=== PATIENT | male | born 1935 | race Caucasian/White ===

== ENCOUNTER → 2024-03-01 | Outpatient (CLI) | payer MEDICARE, BC, SELFPAY ==
[2024-03-01 17:07] LABS: Basophils # (Auto) 0.1 Thou/mm3 (0.0-0.2); Basophils % (Auto) 1 % (0-2.5); Eosinophils # (Auto) 0.3 Thou/mm3 (0.0-0.5); Eosinophils % (Auto) 5 % (0-10); Hematocrit 40.6 % (41.0-53.0); Hemoglobin 12.7 g/dL (13.5-16.0); Immature Granulocytes % (Auto) 0 % (0-0); Immature Granulocytes Auto 0.02 Thou/mm3 (0.00-0.00); Lymphocytes # (Auto) 0.8 Thou/mm3 (1.0-4.8); Lymphocytes % (Auto) 13 % (10-50); Mean Corpuscular HGB Conc 31.3 g/dl (31.0-37.0); Mean Corpuscular Hemoglobin 29.4 pg (25.0-35.0); Mean Corpuscular Volume 94 fL (80-100); Monocytes # (Auto) 0.6 Thou/mm3 (0.0-0.8); Monocytes % (Auto) 10 % (0-12); Neutrophils # (Auto) 4.2 Thou/mm3 (1.8-7.7); Neutrophils % (Auto) 71 % (37-80); Nucleated Red Blood Cell % 0 /100 WBC (0); Platelet Count 182 Thou/mm3 (140-440); RDW Standard Deviation 47.7 fL (35.1-43.9); Red Blood Count 4.32 Miln/mm3 (4.50-5.90); White Blood Count 5.9 Thou/mm3 (3.8-10.6)
[2024-03-01 17:08] LABS: Alanine Aminotransferase 10 U/L (10-49); Albumin, Serum 4.1 gm/dL (3.4-4.8); Albumin/Globulin Ratio 2.1 (1.2-2.2); Alkaline Phosphatase 71 U/L (46-116); Anion Gap 7 (7-16); Aspartate Amino Transferase < 10 U/L (0-34); BUN/Creatinine Ratio 16 Ratio (12-20); Bilirubin,Total 0.6 mg/dL (0.3-1.2); Blood Urea Nitrogen 19 mg/dL (9-23); Calcium 9.4 mg/dL (8.3-10.6); Calcium (Corrected) 9.4 mg/dL (8.5-10.1); Carbon Dioxide 26.7 mMol/L (20.0-31.0); Chloride 106 mMol/L (98-107); Creatinine (Component) 1.2 mg/dL (0.6-1.3); Glucose 144 mg/dL (74-106); Osmolality,Calculated 284 (275-295); Potassium 4.5 mMol/L (3.4-5.1); Sodium 140 mMol/L (136-145); Thyroid Stimulating Hormone 3.22 uIU/mL (0.55-4.78); Total Protein 6.1 gm/dL (5.7-8.2); eGFR 58 See Note
[2024-03-01 17:34] LABS: Glucose Estimated Average 140 mg/dL (80-131); Hemoglobin A1C 6.5 % Hgb (4.8-6.0)
== END | disposition home or self-care (01) ==
LOC: SLDO 14:18
PROVIDERS: PCP Internal Medicine; Referring Provider Internal Medicine; Visit Provider Internal Medicine
DX: R94.6 Abnormal results of thyroid function studies (principal); E11.65 Type 2 diabetes mellitus with hyperglycemia; N40.1 Benign prostatic hyperplasia with lower urinary tract symptoms; I67.9 Cerebrovascular disease, unspecified
CPT/HCPCS: 36415; 80053; 83036; 84439; 84443; 85025

== ENCOUNTER → 2024-03-07 | Outpatient (CLI) | payer MEDICARE, BC, SELFPAY ==
[2024-03-07 13:35] LABS: Collection Type, Urine Clean Catch; Squamous Epithelial Cell,Urine 0 /hpf (0-5)
[2024-03-07 14:55] LABS: Bacteria,Urine Rare; Bilirubin,Urine Negative (Negative); Blood,Urine Negative (Negative); Clarity,Urine Clear (Clear/Hazy); Color,Urine Lt-Yellow (Lt Yel-Yel); Glucose, Urine Negative (Negative); Ketones,Urine Negative (Negative); Leukocyte Esterase,Urine Negative (Negative); Nitrite,Urine Negative (Negative); Protein,Urine Negative (Neg - Trace); RBC,Urine < 1 /hpf (0-3); Specific Gravity,Urine 1.017 (1.001-1.035); Urobilinogen,Urine Negative mg/dL (0.0-1.0); WBC,Urine 1 /hpf (0-5)
== END | disposition home or self-care (01) ==
PROVIDERS: PCP Internal Medicine; Referring Provider Internal Medicine; Visit Provider Internal Medicine
DX: E11.65 Type 2 diabetes mellitus with hyperglycemia (principal)
CPT/HCPCS: 81001

== ENCOUNTER 2024-12-31 18:45 | Emergency (ER) | payer MEDICARE, BC, SELFPAY ==
[2024-12-31 18:47] VITALS: PULSE 74; RESP 18; O2SAT 94; BMI 25.1
--- NOTE | 2024-12-31 18:53 | XR_ITS ---
EXAMINATION: AP chest single view TECHNIQUE: AP portable upright chest single view Date and time: December 31, 2024, 1999 hours, comparison December 31, 2024 1527 hours INDICATIONS: Coughing shortness of breath today. FINDINGS: Subtle abnormal interstitial disease throughout the lungs Mild prominence left ventricle Prominent osteopenia IMPRESSION: Subtle abnormal interstitial disease throughout the lungs consistent with pneumonia
[2024-12-31 19:01] VITALS: BP 147/95; PULSE 82; RESP 20; TEMP 36.8; O2SAT 94
[2024-12-31 19:40] VITALS: BP 141/81; PULSE 77; RESP 20; TEMP 36.8; O2SAT 98
[2024-12-31 20:09] LABS: Basophils # (Auto) 0.0 Thou/mm3 (0.0-0.2); Basophils % (Auto) 0 % (0-2.5); Eosinophils # (Auto) 0.0 Thou/mm3 (0.0-0.5); Eosinophils % (Auto) 0 % (0-10); Hematocrit 40.7 % (41.0-53.0); Hemoglobin 13.4 g/dL (13.5-16.0); Immature Granulocytes Auto 0.02 Thou/mm3 (0.00-0.00); Lymphocytes # (Auto) 0.7 Thou/mm3 (1.0-4.8); Lymphocytes % (Auto) 11 % (10-50); Mean Corpuscular HGB Conc 32.9 g/dl (31.0-37.0); Mean Corpuscular Hemoglobin 30.0 pg (25.0-35.0); Mean Corpuscular Volume 91 fL (80-100); Monocytes # (Auto) 0.3 Thou/mm3 (0.0-0.8); Monocytes % (Auto) 4 % (0-12); Neutrophils # (Auto) 5.5 Thou/mm3 (1.8-7.7); Neutrophils % (Auto) 84 % (37-80); Nucleated Red Blood Cell # 0.00 Thou/mm3 (0.00-0.00); Nucleated Red Blood Cell % 0 /100 WBC (0); Platelet Count 171 Thou/mm3 (140-440); RDW Standard Deviation 45.0 fL (35.1-43.9); Red Blood Count 4.46 Miln/mm3 (4.50-5.90); White Blood Count 6.6 Thou/mm3 (3.8-10.6)
--- NOTE | 2024-12-31 20:34 | EDNOTE_ITS ---
ED General RME/HPI General Chief complaint: Shortness of Breath/Dyspnea Stated complaint: SOB Time Seen by Provider: 12/31/24 18:53 Arrival date/time: 12/31/24 18:45 CC: Coughing spasm HPI patient was recently diagnosed with COVID and pneumonia sent home from the hospital, patient now returns with coughing spasms that are lasting 1 to 2 minutes. The patient states he is not getting relief with the medicines he has at home. EMS reports stable vital signs patient was given 2 breathing treatments and route. Currently the patient is awake alert oriented x 3 no focal deficits denies any chest pain or shortness of breath. States that his cough is better after the breathing treatments. Related Data Previous Rx's ?Medication ?Instructions ?Recorded acetaminophen 500 mg tablet 1,000 mg (2 x 500 mg) PO T ID #30 12/15/17 (Tylenol Extra Strength) tabs cephalexin 500 mg capsule 500 mg PO TID #20 caps 12/15 benzonatate 100 mg capsule 100 mg PO BID PRN cough #20 caps 12/31/24 doxycycline hyclate 100 mg capsule 100 mg PO BID #14 c aps 12/31/24 prednisone 20 mg tablet See Taper PO BID 3 days #6 t abs 12/31/24 Allergies Allergy/AdvReac Type Severity Reaction Status Date / Time No Known Allergies Allergy Verified 12/31/24 18:49 Review of Systems Review of Systems Narrative Review of Systems: GEN: No fever, no chills, no weight loss EYES: No discharge, no visual changes, no pain HEENT: No ear pain, no congestion, no sore throat PULM: No shortness of breath, + cough, no congestion CV: No chest pain, no dyspnea on exertion, no palpitations GI: No nausea, no vomiting, no diarrhea, no pain, no constipation : No frequency, no urgency, no dysuria MUSC/SKEL: No joint pain, no back pain SKIN: No rash PSYCH: No hallucinations, no depression HEME/LYMPH: No easy bleeding or bruising tendencies NEURO: No weakness, no headache Past Medical History Past Medical History CARDIAC: Positive Hypertension; Negative Congestive Heart Failure RESPIRATORY: Negative Chronic Obstructive Pulmonary Disease (COPD) GENITOURINARY: Negative Renal Disease ENDOCRINE: Negative Diabetes Mellitus Type 1 or Diabetes Mellitus Type 2 Social History SMOKING STATUS: Never smoker ED Exam Narrative Physical exam: [General: Obese not in any acute distress Head normocephalic HEENT: Within acceptable limits Neck is supple nontender Chest equal chest rise nontender to palpation Respiratory: Clear to auscultation no wheezes crackles or rubs, dry nonproductive cough. CV: Rate rhythm is regular no murmurs rubs or clicks Abdomen is distended secondary to body habitus soft nontender no masses positive bowel sounds all 4 quadrants Back: No CVA tenderness no spinous process tenderness from cervical spine thoracic and lumbar spine Skin: Intact no petechiae rash induration ulceration or crepitus Extremities: Moving all extremity against resistance cap refill less than 2 seconds neurosensory intact. No lower extremity edema Neuro: Awake alert oriented x3 Glascow coma 15 no focal deficits] Course Course Course Narrative: Reexamination this patient 2119, the patient has no coughing, he is resting comfortably. Daughter at bedside had concerns regarding the patient's treatment of the pneumonia, stating that she wanted antibiotics even though this was a COVID pneumonia. After lengthy explanation the daughter insisted. Will give the patient cough medicine. To follow-up with the primary care doctor. Quality Measures none Orders Category Date Time Status XR chest 1V Stat Exams 12/31/24 18:53 Completed CBC Stat Lab 12/31/24 19:56 Completed CMP [Comprehensive Metabolic Panel] Stat Lab 12/31/24 19:56 Completed Vital Signs Vital signs: Vital Signs Temperature 98.3 F 12/31/24 19:01 Pulse Rate 82 12/31/24 19:01 Respiratory Rate 20 12/31/24 19:01 Blood Pressure 147/95 H 12/31/24 19:01 Pulse Oximetry (%) 94 L 12/31/24 19:01 Oxygen Delivery Method Room Air 12/31/24 19:01 Discharge Plan Plan Patient Disposition: HOME (Self Care) Patient condition on transfer: Stable Prescriptions/Referrals Prescriptions/Med Rec: New prednisone 20 mg tablet See Taper PO BID 3 Days Qty: 6 0RF Taper: Prednisone Taper 20 mg DAILY for 2 Days and 0 Hour 10 mg DAILY for 2 Days and 0 Hour 5 mg DAILY for 7 Days and 0 Hour doxycycline hyclate 100 mg capsule 100 mg PO BID Qty: 14 0RF benzonatate 100 mg capsule 100 mg PO BID PRN (Reason: cough) Qty: 20 0RF No Action acetaminophen [Tylenol Extra Strength] 500 mg tablet 1,000 mg PO TID Qty: 30 0RF cephalexin 500 mg capsule 500 mg PO TID Qty: 20 0RF Referrals: Adrian Saleh MD [Physician, Family Practice] - In 1 week No Primary/Family,Physician [Primary Care Provider] - In 1 week Problem List Clinical Impression: Cough Patient/Caregiver Discharge Instructions Other Activity Instructions:: Continue take the medications prescribed from the last visit, add the prednisone. If there are worsening of symptoms return to the emergency room for reevaluation. Consider dextromethorphan, Delsym, the commercial brand. For cough. If Tessalon Perles were ineffective. Education Materials: ED Cough Chronic Uncertain Cause Adult Print Language: Vincentian Stand Alone Forms: [employer] Award Info., Work/School Release, Patient Portal Info Letter SHELLI/ISAAK Supervising Physician SHELLI/ISAAK Supervising Physician: [employer] ENP [facility] Clinical Information Provided by: patient and EMS Medical Records reviewed [facility] and EMS Meds/Rx considered, not ordered None Labs/Rad/Tests considered, not ordered None Chronic Illness/Social Conditions Explain: COVID-pneumonia Labs Labs: interpreted by or Lab(s) Interpretation(s): CBC shows no leukocytosis and H&H of 13.4 and 40.7. Platelet count is normal. CMP shows no significant electrolyte imbalances a creatinine of 1.4, no transaminitis or T. bili elevation. Imaging Imaging interpretation: interpreted by me Imaging Interpretation(s): Diffuse pneumonia, however when compared to the old EKG upon initial diagnosis there are no significant worsening at this time the patient is already on antibiotics.
[2024-12-31 20:39] LABS: Alanine Aminotransferase 11 U/L (10-49); Albumin, Serum 4.5 gm/dL (3.4-4.8); Albumin/Globulin Ratio 1.9 (1.2-2.2); Alkaline Phosphatase 65 U/L (46-116); Anion Gap 9 (7-16); Aspartate Amino Transferase 20 U/L (0-34); BUN/Creatinine Ratio 10 Ratio (12-20); Bilirubin,Total 0.7 mg/dL (0.3-1.2); Blood Urea Nitrogen 14 mg/dL (9-23); Calcium 9.6 mg/dL (8.3-10.6); Calcium (Corrected) 9.6 mg/dL (8.5-10.1); Carbon Dioxide 23.3 mMol/L (20.0-31.0); Chloride 107 mMol/L (98-107); Creatinine (Component) 1.4 mg/dL (0.6-1.3); Estimated Creatinine Clearance 36.9 mL/min (>60); Globulin 2.4 gm/dL (2.3-3.5); Glucose 174 mg/dL (74-106); Osmolality,Calculated 282 (275-295); Potassium 4.8 mMol/L (3.4-5.1); Sodium 139 mMol/L (136-145); Total Protein 6.9 gm/dL (5.7-8.2); eGFR 48 See Note
[2024-12-31 21:07] VITALS: BP 126/77; PULSE 70; RESP 18; TEMP 36.4; O2SAT 97
== END 2024-12-31 22:12 | disposition home or self-care (01) ==
PROVIDERS: Registered Nurse General Practice; Emergency Provider Emergency Medicine
DX: U07.1 COVID-19 (principal); J12.82 Pneumonia due to coronavirus disease 2019
CPT/HCPCS: 36415; 71045; 80053; 85025; 99283

== ENCOUNTER → 2024-12-31 | Outpatient (CLI) | payer MEDICARE, BC, SELFPAY ==
--- NOTE | 2024-12-31 15:17 | XR_ITS ---
EXAMINATION: PA lateral chest 2 views TECHNIQUE: Upright PA lateral chest 2 views Date and time: December 31, 2024, 1537 hours INDICATIONS: COVID-positive diagnosis 2 days ago. FINDINGS: There is abnormal interstitial disease throughout the lungs Normal heart size Prominent osteopenia IMPRESSION: There is abnormal interstitial disease throughout the lungs consistent with significant pneumonia
== END | disposition home or self-care (01) ==
PROVIDERS: PCP Internal Medicine; Referring Provider Internal Medicine; Visit Provider Internal Medicine
DX: U07.1 COVID-19 (principal); J12.82 Pneumonia due to coronavirus disease 2019; R91.8 Other nonspecific abnormal finding of lung field
CPT/HCPCS: 71046

== ENCOUNTER → 2025-01-10 | Outpatient (CLI) | payer MEDICARE, BC, SELFPAY ==
--- NOTE | 2025-01-10 08:32 | XR_ITS ---
EXAMINATION: AP chest single view TECHNIQUE: AP upright portable chest single view Date and time: January 10, 2025, 0840 hours INDICATIONS: Interstitial disease throughout the lungs on chest on December 31, 2024 FINDINGS: Mild increased interstitial markings at the lung bases Normal heart size No pulmonary edema Moderate osteopenia IMPRESSION: Mild increased interstitial markings at the lung bases, differential would include pulmonary fibrosis, pneumonia, clinical correlation advised
== END | disposition home or self-care (01) ==
PROVIDERS: PCP Internal Medicine; Referring Provider Internal Medicine; Visit Provider Internal Medicine
DX: R91.8 Other nonspecific abnormal finding of lung field (principal); U07.1 COVID-19
CPT/HCPCS: 71046